=== PATIENT | female | born 1990 | race Caucasian/White ===

== ENCOUNTER 2016-09-19 21:07 | Emergency (ER) | payer SELFPAY ==
[~2016-09-19] VITALS: Ht 170.2 cm; Wt 64.0 kg
[2016-09-19 21:12] VITALS: BP 124/83; PULSE 108; RESP 28; TEMP 97.8; O2SAT 97
[2016-09-19] MEDS ORDERED: SODIUM CHLOR 0.9% 1000 ML INJ 1,000 ML IV SCH (21:24)
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
[2016-09-19] MEDS ORDERED: SODIUM CHLORIDE 0.9% FLUSH 10 ML FLUSH IVF PRN (21:30)
[2016-09-19] MEDS ORDERED: MORPHINE SULFATE 4 MG/ML INJ IV ONE (21:30)
[2016-09-19] MEDS ORDERED: DIPHTH/TETANUS/ACEL PERTUSSIS (BOOSTER) 0.5 ML VIAL/PFS IM ONE (21:30)
[2016-09-19] MEDS ORDERED: ONDANSETRON HCL 4 MG/2 ML VIAL IVP ONE (21:30)
[2016-09-19] MEDS ORDERED: ceFAZolin 2 GM PREMIX 50 ML IV ONE (21:30)
[2016-09-19 21:47] VITALS: O2SAT 99
[2016-09-19 21:58] LABS: AUTOMATED NEUTROPHIL # 8.5 TH/MM3 (1.8-7.7); BASOPHIL % 0.3 % (0.0-2.0); EOSINOPHIL % 0.3 % (0.0-4.0); HEMATOCRIT 46.7 % (35.0-46.0); HEMO FLAGS DIFF FINAL; LYMPH % 24.5 % (9.0-44.0); MEAN CORPUSCULAR HEMOGLOBIN 32.9 PG (27.0-34.0); MEAN CORPUSCULAR HGB CONC 32.9 % (32.0-36.0); MONO % 5.2 % (0.0-8.0); NEUT % 69.7 % (16.0-70.0); PLATELET COUNT 322 TH/MM3 (150-450); RED BLOOD COUNT 4.67 MIL/MM3 (4.00-5.30); WHITE BLOOD COUNT 12.3 TH/MM3 (4.0-11.0)
[2016-09-19 22:09] LABS: APTT (PATIENT) 25.4 SEC (24.3-30.1); PROTHROMBIN TIME - PATIENT 10.9 SEC (9.8-11.6)
[2016-09-19 22:12] LABS: ANION GAP 9 MEQ/L (5-15)
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
[2016-09-19 22:16] LABS: ALKALINE PHOSPHATASE 75 U/L (45-117); ALT (GPT) 46 U/L (10-53); AST (GOT) 38 U/L (15-37); BICARBONATE 28.2 MEQ/L (21.0-32.0); BLOOD UREA NITROGEN 8 MG/DL (7-18); CHLORIDE 107 MEQ/L (98-107); GLOMERULAR FILTRATION RATE 117 ML/MIN (>89); MAGNESIUM 2.3 MG/DL (1.5-2.5); POTASSIUM 3.5 MEQ/L (3.5-5.1); SODIUM (NA) 144 MEQ/L (136-145); TOTAL BILIRUBIN ADULT 0.3 MG/DL (0.2-1.0)
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
[2016-09-19 23:57] LABS: AMPHETAMINE, URINE NEG (NEG); BARBITURATES, URINE NEG (NEG); COCAINE, URINE NEG (NEG)
[2016-09-20 00:02] LABS: BACTERIA, URINE RARE /hpf; BLOOD, URINE NEG (NEG); GLUCOSE,URINE NEG (NEG); KETONE, URINE NEG (NEG); MUCUS URINE FEW /lpf (OCC); RENAL EPITHELIAL CELLS 2 /hpf; SQUAMOUS EPITHELIAL CELL URINE <1 /hpf (0-5); URINE COLOR LIGHT-YELLOW (YELLW/STRAW)
[2016-09-20 00:03] LABS: COMMENT (UR) CULTURE INDICATED; CULTURE IF INDICATED CULTURE INDICATED; NITRITE,URINE POS (NEG)
[2016-09-20 00:05] VITALS: BP 113/80; PULSE 88; RESP 18; O2SAT 99
[2016-09-20] MEDS ORDERED: MACR100C2 PO (00:13)
[2016-09-20] MEDS ORDERED: CYCL5TAB PO (00:13)
[2016-09-20] MEDS ORDERED: HYDR-3533 PO (00:13)
[2016-09-20] MEDS ORDERED: ACETAMINOPHEN/HYDROcodone 325 MG/5 MG TAB PO ONE (00:15)
== END 2016-09-20 01:12 | disposition home or self-care (01) ==
LOC: NEPC 21:07
DX: S02.2XXA Fracture of nasal bones, initial encounter for closed fracture (principal); N30.00 Acute cystitis without hematuria; B96.89 Other specified bacterial agents as the cause of diseases classified elsewhere; R51 Headache; R07.9 Chest pain, unspecified; F17.210 Nicotine dependence, cigarettes, uncomplicated; M54.2 Cervicalgia; Y04.2XXA Assault by strike against or bumped into by another person, initial encounter; Z23 Encounter for immunization
CPT/HCPCS: 70450; 70486; 71010; 72125; 72170; 80053; 80307; 81001; 83690; 83735; 84703; 85025; 85610; 85730; 87086; 90471; 90715; 96361; 96374; 96375; 99285; J0690; J2270; J2405; J7030